=== PATIENT | female | born 1945 | race Caucasian/White ===

== ENCOUNTER 2023-08-26 09:26 | Emergency (ER) | payer BC, SELFPAY ==
[2023-08-26] VITALS (24 sets, daily range): BP systolic 112–137; BP diastolic 59–70; PULSE 63–79; RESP 12–16; TEMP 36.4; O2SAT 88–100; BMI 22.6
--- NOTE | 2023-08-26 09:48 | CRLHL7_ITS ---
For Patients: As a result of the Century Cures Act, medical imaging exams and procedure reports are released immediately into your electronic medical record. You may view this report before your referring provider. If you have questions, please contact your health care provider. INDICATION: ATAXIA, stroke protocol TECHNIQUE: CT head without contrast. COMPARISON: None. FINDINGS: CSF spaces: Within normal limits for age. Brain parenchyma and extra-axial spaces: There are mild nonspecific low attenuation white matter changes consistent with chronic microvascular disease. No sign of intracranial hemorrhage, or midline shift. Skull base and calvarium: The visualized paranasal sinuses and mastoid air cells demonstrate no acute or significant findings. The visualized orbits are grossly unremarkable. No skull fractures. IMPRESSION: No evidence of acute intracranial abnormality on this unenhanced CT. Specifically, no evidence of acute intracranial hemorrhage. Findings discussed with DR. GUILLERMO at 10:12 a.m. Please note that all CT scans at this facility use dose modulation, iterative reconstruction, and/or weight-based dosing when appropriate to reduce radiation dose to as low as reasonably achievable. Dictated by Galindo Frey MD @ 08/26/2023 10:13:33 AM (Electronically Signed)
--- NOTE | 2023-08-26 09:48 | CRLHL7_ITS ---
For Patients: As a result of the Century Cures Act, medical imaging exams and procedure reports are released immediately into your electronic medical record. You may view this report before your referring provider. If you have questions, please contact your health care provider. CLINICAL HISTORY: Ataxia. TECHNIQUE: CTA neck with contrast bolus tracking. 3D angiographic rendering using maximum intensity projection (MIP) and images permanently archived. COMPARISON: None available. FINDINGS: The great vessels are patent. The common carotid arteries are patent. Moderate (50-55%) atherosclerotic stenosis of the proximal left ICA by NASCET criteria. No significant stenosis of the proximal right ICA by NASCET criteria. The more distal cervical ICAs are patent. The origins of the vertebral arteries are patent. The cervical segments of the vertebral arteries are patent. Small hypodense nodules in the thyroid gland. IMPRESSION: Moderate (50-55%) atherosclerotic stenosis of the proximal left ICA by NASCET criteria. Please note that all CT scans at this facility use dose modulation, iterative reconstruction, and/or weight-based dosing when appropriate to reduce radiation dose to as low as reasonably achievable. Dictated by Perry Francis MD @ 08/26/2023 10:23:01 AM (Electronically Signed)
--- NOTE | 2023-08-26 09:48 | CRLHL7_ITS ---
For Patients: As a result of the Century Cures Act, medical imaging exams and procedure reports are released immediately into your electronic medical record. You may view this report before your referring provider. If you have questions, please contact your health care provider. CLINICAL HISTORY: Ataxia. TECHNIQUE: CTA head with contrast bolus tracking. 3D angiographic rendering using maximum intensity projection (MIP) and images permanently archived. COMPARISON: None available. FINDINGS: The petrous, cavernous, and supraclinoid segments of the internal carotid arteries are patent. The anterior and middle cerebral arteries are patent. The anterior communicating artery is visualized and is within normal limits. The intracranial vertebral arteries, basilar trunk, and posterior cerebral arteries are patent. No intracranial proximal large vessel occlusion or flow-limiting luminal stenosis. No evidence of cerebral aneurysm. No findings to suggest an arterial-venous shunting lesion. IMPRESSION: No intracranial proximal large vessel occlusion, flow-limiting luminal stenosis, or cerebral aneurysm. Please note that all CT scans at this facility use dose modulation, iterative reconstruction, and/or weight-based dosing when appropriate to reduce radiation dose to as low as reasonably achievable. Dictated by Perry Francis MD @ 08/26/2023 10:23:28 AM (Electronically Signed)
[2023-08-26 09:57] LABS: Basophils Percent Auto 0.4 % (0.0-3.0); Eosinophils Percent Auto 2.4 % (0.0-7.0); Hematocrit 33.6 % (33.0-51.0); Immature Granulocytes Pct Auto 0.1 %; Lymphocytes Percent Auto 11.8 % (20-44); Mean Corpuscular HGB Conc 33 gm/dL (32-36); Mean Corpuscular Hemoglobin 31 pg (26-34); Mean Corpuscular Volume 94 fL (80-100); Neutrophils Percent Auto 80.3 % (42.0-72.0); Platelet Count* 314 K/uL (140-440); RDW Coefficient of Variation % 13.2 % (11.5-15.5); Red Blood Count 3.58 m/uL (4.00-5.20); White Blood Count* 11.05 K/uL (4.50-11.00)
--- NOTE | 2023-08-26 10:02 | ED_ITS ---
[facility] - General Adult General Date Seen: 08/26/23 Chief complaint: Neuro Symptoms/Altered Deficit Stated complaint: weak,speech issues, trouble walking Time Seen by Provider: 08/26/23 09:29 History of Present Illness HPI narrative: This is a 77-year-old female with a past medical history of diabetes, hypertension, dyslipidemia, arthritis with previous hip replacements, who presents to the ER today from home with her for evaluation of ataxia and difficulty walking and speech difficulty. Patient 1st noted symptoms 3 days ago on Saturday evening had roughly 6:00 p.m.. She had been [place] Thanksgiving on Saturday and after Thanksgiving dinner when she tried to get up from the table she noticed that she was just weak in general (no definite focal or unilateral weakness) and unsteady on her feet, and her family noticed that she was having some trouble with her speech. Her speech seemed garbled. Her kcslalpf-le-vvu was very concerned about her but she decided that she would sit down in a chair in rest. She rested for a couple of hours and then when she got up to go up to bed that night, her symptoms were essentially gone. She slept well overnight Saturday night. On Saturday she was run down (because she had host did Thanksgiving on Saturday) so did not do much. She spent most of the day launching in her chair. She is not really sure if she was unsteady on Saturday or not. Speech was normal on Saturday. Yesterday, on Saturday she felt normal. Gait was steady, speech was normal. No other symptoms. She went shopping with her in [place]. She went to bed last night about 10 30 and was normal. She did get up to go to the bathroom once overnight (as she typically does) and she did feel unsteady when she was up to go to the bathroom. This morning she feels very unsteady. She is having trouble keeping her balance and she has to hold onto things when she walks. Her speech is normal this morning. No other symptoms this morning. No headache. No blurry vision or diplopia or vision loss. No confusion. Normal speech. No facial droop. No chest pain. No palpitations. No shortness of breath. No nausea. No vomiting. No abdominal pain. No back pain. No unilateral numbness or weakness in her arms or legs. She just feels unsteady when she walks. She is not having any spinning or vertigo. She has not had any recent illnesses or cough or fever. No history of AFib. No recent palpitations. No history of cardiovascular disease or stents. No recent changes in her medications. She is on metformin for borderline diabetes. She is on lisinopril/hydrochlorothiazide for blood pressure. She takes rosuvastatin for high cholesterol. Related Data Home Medications Medication Instructions Recorded Confirmed aspirin 325 mg capsule 325 mg PO DAILY 08/26/23 08/26/23 gabapentin 300 mg capsule 300 mg PO DAILY 08/26/23 08/26/23 lisinopril 20 1 tab PO DAILY 08/26/23 08/26/23 mg-hydrochlorothiazide 25 mg tablet metformin 500 mg tablet,extended 1,000 mg PO BID 08/26/23 08/26/23 release 24 hr rosuvastatin 20 mg tablet 20 mg PO QPM 08/26/23 08/26/23 Allergies Allergy/AdvReac Type Severity Reaction Status Date / Time artichoke Allergy Unknown Verified 08/26/23 09:31 [facility] Social History Smoking Status: Never smoker Non-prescribed substance use: denies use Exam Narrative: Exam Narrative: Constitutional: Appears well-developed and well-nourished. Alert. Conversant. Non toxic. HENT: Head: Atraumatic. Nose: Nose normal. Mouth/Throat: Oral mucosa is clear and moist. no trismus. Pharynx normal. Tonsils symmetric. No tonsillar enlargement, erythema, or exudate. Eyes: Conjunctivae normal. EOM normal. Pupils equal, round, and reactive to light. No scleral icterus. Neck: Normal range of motion. Neck supple. No tracheal deviation present. No JVD Cardiovascular: Normal rate, regular rhythm. No gallop. No friction rub. No murmur heard. Symmetric radial artery pulses Pulmonary/Chest: Effort normal. No stridor. No respiratory distress. No wheezes. No rales. No rhonchi . No tenderness. Abdominal: Soft. Bowel sounds normal. No distension. No mass. No tenderness. No rebound. No guarding. Musculoskeletal: RUE: Normal range of motion. No tenderness. No deformity LUE: Normal range of motion. No tenderness. No deformity RLE: Normal range of motion. No edema. No tenderness. No deformity LLE: Normal range of motion. No edema. No tenderness. No deformity Lymph: No cervical adenopathy. Neurological: Mental status normal. Attention normal. Alert and oriented x3. GCS 15. Memory normal. Speech fluent. Cognition normal. Cranial Nerves intact II-XII except I did not formally test gag or visual acuity. EOMI. Palate elevates symmetrically and tongue protrudes in the midline. Strength: 5/5 trapezius on the right and left 5/5 deltoid on the right and left 5/5 biceps on the right and left 5/5 triceps on the right and left 5/5 artillery officer on the right and left 5/5 thumb opposition on the right and le ft 5/5 finger abduction on the right and le ft 5/5 hip flexors (L3) on the right and le ft 5/5 quadriceps (L4) on the right and lef t 5/5 tibialis anterior on the right and l eft 5/5 EHL (L5) on the right and left 5/5 gastrocnemius (S1) on the right and left 5/5 hamstring on the right and left Sensation intact to light touch in both upper extremities (C4-T1) Sensation intact to light touch in Both lower extremities (L4-S1). Rmtruk-pw-murz normal. Difficulty with heel to núñez. Gait is unsteady. She is unsteady on her feet. She tends to hold on to allison or objects. She is not able to pass a Romberg test. She seems to be listing perhaps slightly to the left foot really falls in either direction. NIH stroke scale = 0 but this does not quantify her ataxia.. Skin: Skin is warm and dry. No rash noted. No pallor. Normal capillary refill. Psychiatric: Normal mood. Normal affect. Const: Vital Signs, click to edit/add: Vital Signs - 24 hr 08/26/23 09:31 08/26/23 09:42 08/26/23 09:48 Temperature 97.5 F L Pulse Rate 74 Pulse Rate [Pulse Oximeter] 78 Respiratory Rate 14 14 Blood Pressure 114/70 Blood Pressure [Le ft Upper Arm] 137/65 Pulse Oximetry 100 100 100 Oxygen Delivery Me thod Room Air Room Air 08/26/23 10:01 08/26/23 10:12 08/26/23 10:22 Temperature Pulse Rate 79 73 71 Pulse Rate [Pulse Oximeter] Respiratory Rate 12 14 14 Blood Pressure 129/59 L 121/66 114/60 Blood Pressure [Le ft Upper Arm] Pulse Oximetry 100 100 99 Oxygen Delivery Me thod Room Air Room Air 08/26/23 10:32 08/26/23 10:42 08/26/23 10:52 Temperature Pulse Rate 73 71 70 Pulse Rate [Pulse Oximeter] Respiratory Rate 16 16 12 Blood Pressure 118/60 112/59 L 117/62 Blood Pressure [Le ft Upper Arm] Pulse Oximetry 98 97 98 Oxygen Delivery Me thod 08/26/23 11:02 08/26/23 11:12 08/26/23 11:22 Temperature Pulse Rate 70 71 69 Pulse Rate [Pulse Oximeter] Respiratory Rate 14 14 12 Blood Pressure 117/60 116/59 L 112/66 Blood Pressure [Le ft Upper Arm] Pulse Oximetry 97 97 98 Oxygen Delivery Me thod 08/26/23 11:32 08/26/23 11:42 08/26/23 11:52 Temperature Pulse Rate 71 72 75 Pulse Rate [Pulse Oximeter] Respiratory Rate 14 12 14 Blood Pressure 112/64 123/65 132/64 Blood Pressure [Le ft Upper Arm] Pulse Oximetry 97 98 99 Oxygen Delivery Me thod 08/26/23 12:00 08/26/23 12:31 08/26/23 12:45 Temperature 97.5 F L Pulse Rate 75 71 73 Pulse Rate [Pulse Oximeter] 78 Respiratory Rate 14 Blood Pressure 132/64 Blood Pressure [Le ft Upper Arm] 137/65 Pulse Oximetry 99 100 99 Oxygen Delivery Me thod Room Air 08/26/23 13:00 08/26/23 13:15 08/26/23 13:30 Temperature Pulse Rate 63 68 67 Pulse Rate [Pulse Oximeter] Respiratory Rate Blood Pressure Blood Pressure [Le ft Upper Arm] Pulse Oximetry 100 100 99 Oxygen Delivery Me thod 08/26/23 13:45 08/26/23 14:00 08/26/23 14:50 Temperature 97.5 F L Pulse Rate 66 75 Pulse Rate [Pulse Oximeter] 78 Respiratory Rate 14 Blood Pressure Blood Pressure [Le ft Upper Arm] 137/65 Pulse Oximetry 97 88 Oxygen Delivery Me thod Course Course ED Course: Patient arrived in the ER was roomed in to ER bed 8. I went to evaluate the patient but she was changing from her blouse into her gown. We stepped out for a couple of minutes to allow her privacy to change. I came in and performed initial history and physical exam. No definite neurologic symptoms save for significant ataxia. We activated the stroke team activation. Based on my initial assessment the patient's last known well time was actually 10 30 last night, which places her outside the window for intravenous thrombolytics. She is potentially in the window for intra-arterial intervention if there were an LV 0. Therefore add the nurses take the time to start an IV so we could do CT noncontrast as well as CT angiogram head and neck during her initial imaging phase. Twelve lead EKG shows sinus rhythm with first-degree AV block, rate 77. No AFib. security monitor showed confirms sinus rhythm. She denies any history of AFib and is not having any recent palpitations. Blood pressure is normal-130/60s. No need for antihypertensive therapy. Blood sugar normal. Oxygen normal At 10:05 a.m. discussed with the stroke neurologist from [facility]. He would recommend obtaining CT/CTA initially and if those are normal MRI. He will follow with imaging. He agrees that the patient would not be a thrombolytic candidate based on last known well time. Recheck-12:00 p.m.. Patient gone for MRI. Recheck-12:45 p.m.. Stroke Neurology from [facility] has reviewed the MRI and finds no evidence for acute stroke or other abnormality. They recommend if the patient is still symptomatic admitted to the hospital for observation and able to a formal tele consult. If patient is improved she may be able to discharge home. Reevaluation(s) Reevaluation #1: Recheck-back from MRI. Asymptomatic in sitting up talking with her son while in bed. IV fluids infusing. Vital Signs Vital signs: Initial Vital Signs Temperature 97.5 F L 08/26/23 09:31 Temperature Source Temporal Artery Scan 08/26/23 09:31 Pulse Rate 78 08/26/23 09:31 Pulse Rhythm Regular 08/26/23 09:31 Respiratory Rate 14 08/26/23 09:31 Blood Pressure 137/65 08/26/23 09:31 Blood Pressure Mean 89 08/26/23 09:31 Blood Pressure Position Supine 08/26/23 09:31 Pulse Oximetry 100 08/26/23 09:31 Oxygen Delivery Method Room Air 08/26/23 09:31 Vital Signs Temperature 97.5 F L 08/26/23 09:31 Pulse Rate 78 08/26/23 09:31 Respiratory Rate 14 08/26/23 09:31 Blood Pressure 137/65 08/26/23 09:31 Pulse Oximetry 100 08/26/23 09:31 Oxygen Delivery Method Room Air 08/26/23 09:31 Temperature 97.5 F L 08/26/23 14:50 Pulse Rate 78 08/26/23 14:50 Respiratory Rate 14 08/26/23 14:50 Blood Pressure 137/65 08/26/23 14:50 Pulse Oximetry 88 08/26/23 14:00 Oxygen Delivery Method Room Air 08/26/23 12:00 Medications Administered Medications: Discontinued Medications Generic Name Dose Route Start Last Admin Trade Name Freq PRN Reason Stop Dose Admin Sodium Chloride 1,000 mls @ 1,000 mls/hr 08/26/23 12:30 08/26/23 14:25 0.9 % Sodium Chloride 1000 Ml IV 08/26/23 13:29 Infused .Q1H BRIAN Infusion Medical Decision Making MDM Narrative Medical decision making narrative: This is a pleasant 77-year-old female presenting to the ER today for neurologic symptoms fluctuating since Saturday evening, 3 days ago. She had an episode of weakness, unsteady gait, and speech difficulty the last couple of hours Saturday. It is questionable whether not she had symptoms on Saturday or not. She was definitely normal yesterday on Saturday. She has been ataxic without any other neurologic symptoms overnight Saturday night into this morning. Last known well was 10:30 p.m. on Saturday night. When the patient arrived a stroke team activation was initiated. Noncontrast head CT is negative for bleed and CT angiogram is negative for large vessel occlusion. She is not a candidate for IV thrombolytics because of time window. Discussed with Nephrology and they agree. No candidate for intra-arterial intervention in the absence of LV 0. CT angio of the patient's neck does show moderate stenosis of her left internal carotid. MRI of the patient's brain is normal. Patient is already on aspirin. Consider non stroke causes of unsteadiness. She is not having any tinnitus, spinning vertigo, or other clear symptoms to suggest a peripheral vertigo. She may be mildly dehydrated, and received IV fluids here in the ER. BUN mildly elevated but creatinine normal. Other electrolytes normal. After fluids, her unsteadiness resolved. She passed ambulation trial in the hallway without any difficulty.. No evidence for arrhythmia, AFib, or ACS. She is mildly anemic with a hemoglobin of 11, no recent baseline, but doubt that this mild anemia is causing her symptoms. No symptoms of recent bleeding Discussed with the patient that the exact cause of her fluctuating unsteadiness and her episode of speech difficulty did occurred 3 nights ago is unclear. It could be related to dehydration however with the 1st episode occurring right after Thanksgiving dinner, dehydration or hypoglycemia would of been doubtful. Patient is feeling much better and is wants to discharge home. I agree that with reassuring workup and normal MRI and CT scan here watchful monitoring at home would be appropriate management. Precautions for return to the ER reviewed. Questions answered. Lab Data Labs: Lab Results 08/26/23 08/26/23 Range/Units 09:48 11:10 WBC 11.05 H (4.50-11.00) K/uL RBC 3.58 L (4.00-5.20) m/uL Hgb 11.0 L (12.0-16.0) gm/dL Hct 33.6 (33.0-51.0) % MCV 94 (80-100) fL MCH 31 (26-34) pg MCHC 33 (32-36) gm/dL RDW Coeff of Edwin 13.2 (11.5-15.5) % Plt Count 314 (140-440) K/uL Neut % (Auto) 80.3 H (42.0-72.0) % Lymph % (Auto) 11.8 L (20-44) % Sequoyah % (Auto) 5.0 (0.0-11.0) % Eos % (Auto) 2.4 (0.0-7.0) % Baso % (Auto) 0.4 (0.0-3.0) % Neut # (Auto) 8.90 H (1.7-7.0) K/uL Lymph # (Auto) 1.30 (0.90-2.90) K/uL Sequoyah # (Auto) 0.60 (0.00-0.90) K/UL Eos # (Auto) 0.30 (0.00-0.50) K/uL Baso # (Auto) 0.00 (0.00-0.30) K/uL Abs Immat Gran (auto) 0.00 (0.00-0.30) K/uL Imm/Tot Granulo (auto) 0.1 % INR 1.02 (0.91-1.10) APTT 27 (23-33) Seconds Sodium 140 (135-149) mmol/L Potassium 4.0 (3.6-5.1) mmol/L Chloride 101 (96-114) mmol/L Carbon Dioxide 27 (20-32) mmol/L Anion Gap 12 (7-15) mEq/L BUN 31 H (7-30) mg/dL Creatinine 1.3 (0.5-1.5) mg/dL Estimated Creat Clear 34.47 Estimated GFR 43 ml/min Glucose 120 H (60-115) mg/dL Calcium 10.0 (8.4-10.6) mg/dL Troponin I < 0.01 L (0.01-0.04) ng/mL Lab Acknowledgement Test Added Imaging Data CTA head: Attestation: I have reviewed the pertinent imaging results. Radiologist's impression: IMPRESSION: No intracranial proximal large vessel occlusion, flow-limiting luminal stenosis, or cerebral aneurysm. CTA neck: Attestation: I have reviewed the pertinent imaging results. Radiologist's impression: IMPRESSION: Moderate (50-55%) atherosclerotic stenosis of the proximal left ICA by NASCET criteria. CT scan - head: Attestation: I have reviewed the pertinent imaging results. Radiologist's impression: IMPRESSION: No evidence of acute intracranial abnormality on this unenhanced CT. Specifically, no evidence of acute intracranial hemorrhage. ECG Data Attestation: I personally reviewed and interpreted this ECG as follows: Interpretation: Normal sinus rhythm rate 77 HI 210. First-degree AV block QRS axis normal axis. Narrow Q-wave in V1. ST segment/T wave: No ST segment elevation or depression. QTc: 452. Discharge Plan Discharge Clinical Impression: Dizziness Patient Disposition: Home, Self-Care Condition: Stable Instructions: Dizziness (ED) Additional Instructions: As we discussed, please return to the ER right away if you have any recurrent episodes of dizziness, trouble with her speech, confusion, fever, headache, chest pain, or any problems. Please follow-up with your regular doctor within the next 2-3 days for a recheck. Prescriptions: No Action gabapentin 300 mg capsule 300 mg PO DAILY lisinopril-hydrochlorothiazide 20-25 mg tablet 1 tab PO DAILY metformin 500 mg tablet extended release 24 hr 1,000 mg PO BID rosuvastatin 20 mg tablet 20 mg PO QPM aspirin 325 mg capsule 325 mg PO DAILY Follow Up/Referrals: Huong Orr MD [Referring] - Stand Alone Forms: [employer] Info Instructions
[2023-08-26 10:05] LABS: Slide Review Reflex No
[2023-08-26 10:12] LABS: Chloride* 101 mmol/L (96-114); Sodium* 140 mmol/L (135-149)
[2023-08-26 10:14] LABS: INR 1.02 (0.91-1.10)
[2023-08-26 10:15] LABS: Anion Gap 12 mEq/L (7-15); Carbon Dioxide* 27 mmol/L (20-32); Creatinine* 1.3 mg/dL (0.5-1.5); Est. Creatinine Clearance* 34.47; Estimated Glomerular Filt Rate 43 ml/min; Partial Thromboplastin Time* 27 Seconds (23-33)
[2023-08-26 10:16] LABS: Blood Urea Nitrogen* 31 mg/dL (7-30); Glucose* 120 mg/dL (60-115)
--- NOTE | 2023-08-26 10:22 | ED.NURSE ---
0934- MD at bedside for exam during triage. GCS 15. 0944- Per MD, stroke code activated. 0947- [facility] called by [facility]. 0948- #20G IV established in L AC. Bloodwork drawn. POC BG 112mg/dL. 0949- Pt to CT via w/c. 1003- EKG done. GCS 15. VSS on RA. 1004- Stroke Neuro called back.
--- NOTE | 2023-08-26 11:42 | CRLHL7_ITS ---
For Patients: As a result of the Century Cures Act, medical imaging exams and procedure reports are released immediately into your electronic medical record. You may view this report before your referring provider. If you have questions, please contact your health care provider. Indication: ATAXIA, STROKE PROTOCOL Technique: Noncontrast sagittal T1 weighted, axial T2 fast spin echo, FLAIR, and diffusion weighted images of the head. Comparison: CT/CTA 08/23/2023. 09/12/2015 MRI Findings: Mild scattered patchy foci of increased T2 signal within the periventricular and subcortical white matter of both cerebral hemispheres. Mild cerebral parenchymal volume loss. The ventricles, sulci and gyri are of normal size, shape and contour for age and degree of atrophy. No regions of restricted diffusion. Midline structures are centrally located. No convincing evidence of suspicious intra- or extra-axial fluid collections. Findings called to Dr. Marques at 12:51 pm Impression: 1. No radiographic evidence of acute intracranial abnormalities. 2. Mild supratentorial white matter changes are non-specific but most likely related to small vessel ischemic disease. Mild cerebral volume loss. Dictated by Maury Mendieta MD @ 08/26/2023 12:52:03 PM (Electronically Signed)
--- NOTE | 2023-08-26 11:50 | ED.NURSE ---
To MRI. Questionnaire completed by RAD staff.
[2023-08-26] MEDS: 0.9 % SODIUM CHLORIDE 1000 ml 1,000 ML IV (12:36)
[2023-08-26 12:37] LABS: Troponin I* < 0.01 ng/mL (0.01-0.04)
== END 2023-08-26 14:50 | disposition home or self-care (01) ==
PROVIDERS: Emergency Provider Emergency Medicine; PCP Family Medicine
DX: R42 Dizziness and giddiness (principal)
CPT/HCPCS: 36415; 70450; 70496; 70498; 70551; 80048; 82962; 84484; 85025; 85610; 85730; 93005; 94761; 99284; 99291; J7030; Q9967

== ENCOUNTER 2024-05-08 13:00 | Outpatient (RCR) | payer BC, SELFPAY | END 2024-09-05 23:59 | disposition home or self-care (01) | PROVIDERS: PCP Family Medicine; Visit Provider Family Medicine | DX: M54.2 Cervicalgia (principal); Z51.89 Encounter for other specified aftercare | CPT/HCPCS: 97110; 97140; 97162 ==

== ENCOUNTER 2024-12-16 11:00 | Outpatient (RCR) | payer BC, SELFPAY | END 2025-04-15 23:59 | disposition home or self-care (01) | PROVIDERS: PCP Family Medicine; Visit Provider Family Medicine | DX: M54.2 Cervicalgia (principal); G89.29 Other chronic pain; Z51.89 Encounter for other specified aftercare | CPT/HCPCS: 97110; 97140; 97162 ==